=== PATIENT | female | born 1945 | race Caucasian/White ===

== ENCOUNTER → 2021-03-31 | Outpatient (CLI) | payer MEDICARE, OTHER ==
[~2021-03-31] MED LIST: ZOFRAN ODT4 MG SUBLING
== END ==
LOC: M.RAD 11:41
PROVIDERS: ATTEND Registered Nurse Diabetes Educator
DX: Z12.31 Encounter for screening mammogram for malignant neoplasm of breast (principal); M19.012 Primary osteoarthritis, left shoulder; M25.512 Pain in left shoulder; N64.89 Other specified disorders of breast

== ENCOUNTER → 2021-04-05 | Outpatient (CLI) | payer MEDICARE, OTHER | LOC: M.ULTRA 09:00 | PROVIDERS: ATTEND Registered Nurse Diabetes Educator | DX: N63.10 Unspecified lump in the right breast, unspecified quadrant (principal) ==